=== PATIENT | female | born 1975 | race Caucasian/White ===

== ENCOUNTER 2017-08-31 04:00 | Outpatient (CLI) | payer MEDICARE, MEDICAID ==
[~2017-08-31 04:00] MED LIST: DULO-31 PO; GABA-338 PO; LEVIMIR SQ; METF500T PO; METO-292 PO; OMEG1CAP SQ
== END 2017-08-31 23:59 | disposition home or self-care (01) ==
LOC: DIABETIC 04:00
PROVIDERS: ATTEND Specialist
DX: E11.65 Type 2 diabetes mellitus with hyperglycemia (principal)
CPT/HCPCS: G0108